=== PATIENT | female | born 2000 | race Native Hawaiian/Other Pacific Islander ===

== ENCOUNTER 2024-11-03 08:50 | Outpatient (AMB) | payer MEDICAID, SELFPAY ==
[2024-11-03 09:24] VITALS: BP 110/73; PULSE 100; RESP 20; TEMP 36.1; O2SAT 98; BMI 36.4
--- NOTE | 2024-11-03 09:24 | OBCLNT_ITS ---
Vital Signs 11/03/24 09:24 Height 1.57 m Height Method Stated Weight 90.435 kg Weight Measurement Method Standing Scale BMI 36.4 BP 110/73 Blood Pressure Source Automatic Cuff Blood Pressure Location Left Upper Arm Position Sitting Respiration 20 Pulse 100 Pulse Source Monitor Temp 96.9 F Temp Source Oral Pulse Oximetry (%) 98 Oxygen Delivery Method Room Air Allergies/Home Meds Allergies & Medications Allergies No Known Allergies Allergy (Verified 11/03/24 09:26) Medication Reconciliation ferrous sulfate 325 mg (65 mg iron) tablet (FeroSul) 325 mg PO BID 12/16/23 [History Confirmed 11/03/24] vit no.95-ferrous fumarate 28 mg-folic acid 800 mcg tablet () 1 tab PO DAILY 12/16/23 [History Confirmed 12/23/23] Intake Visit Data Collection New Patient or Established: Established Patient (seen at [facility] within 3 years) Reason for Visit:: CARE Seen by Clinical Staff ONLY (RN/MA): No 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 1. Little interest or pleasure in doing things: not at all 2. Feeling down, depressed, or hopeless: not at all Total score: 0 PHQ-9 3. Trouble falling or staying asleep, or sleeping too much: Not at all 4. Feeling tired or having little energy: Not at all 5. Poor appetite or overeating: Not at all 6. Feeling bad about yourself - or that you are a failure or have let yourself or your family down: Not at all 7. Trouble concentrating on things, such as reading the newspaper or watching television: Not at all 8. Moving or speaking so slowly that other people could have noticed? - Or the opposite - being so fidgety or restless that you have been moving around a lot more than usual: not at all 9. Thoughts that you would be better off or of hurting yourself in some way: Not at all Total score: 0 Source: Developed by Drs. Luis Jones, Maddie Marie, Noah Schmidt and colleagues, with an educational hadley from [employer]. Depression screen completed yes Social History Living Situation History Lives With: Children Housing: House Tobacco History Smoking Status: Never smoker Second Hand Smoke Exposure: No Alcohol History Alcohol Intake: Never Domestic Abuse History Do You Feel Safe at Home: Yes NURSE CHEMICAL DEPENDENCY: Past Medical History Past Medical History: No Hx Neurological Disorders, Yes Hx Cardiac Disorders (GHTN), No Hx Cancer, Yes Hx Blood Disorders, Yes Hx Anemia, No Hx Gastrointestinal Disorders, No Hx Renal Disease, No Hx Diabetes Mellitus Type 1 and No Hx Diabetes Mellitus Type 2 OB Initial Visit Menstrual History Menstrual reliability: definite Flow: normal Menstrual regularity: irregular Monthly: No Age at menarche: 11 On control pills at conception: No Date of positive home test: 05/18/24 Associated symptoms (LMP): Reports nausea OB History : 3 Para: 2 Hx Total # of Abortions (Spontaneous & Elective): 0 # of Living Children: 2 Delivery History 1st : Child's name: LULÚ date: 12/17/22 sex: male Gestational age at delivery (weeks): 31 Delivery type: vaginal History of depression before or after : No 2nd : Child's name: LINDA date: 12/26/23 sex: male Gestational age at delivery (weeks): 36 Delivery type: Delivery complications: NONE History of depression before or after : No Infection History & Risk Evaluation History of STDs: chlamydia Genetic Screening & History Genetic Screening/Teratology Counseling - Includes patient, baby's father, or anyone in either family with: 1. Patient's age 35 years or older as of estimated date of delivery: No 2. Thalassemia (Kyrgyz, Croatian, Mediterranean, or Background); MCV less than 80: No 3. Neural Tube Defect (Meningomyelocele, Spina Bifida, or Anencephaly): No 4. Congenital Heart Defect: No 5. Down Syndrome: No 6. Eddie-Sachs (Ashkenazi Christianity, Cajun, Yakut Mauritanian): No 7. Joao Disease (Ashkenazi Christianity): No 8. Familial Dysautonomia (Ashkenazi Christianity): No 9. Sickle Cell Disease or Trait (): No 10. Hemophilia or other blood disorders: No 11. Muscular Dystrophy: No 12. Cystic Fibrosis: No 13. Toan's Chorea: No 14. Mental Retardation/Autism: No 15. Other inherited genetic or chromosomal disorder: No 16. Maternal Metabolic Disorder (EG,TYPE 1 Diabetes, PKU): No 17. Patient or baby's father had a child with defects not listed above: No 18. Recurrent loss or a stillbirth: No 19. Medications (including supplements, vitamins, herbs or otc drugs)/illicit/recreational drugs/alcohol since last menstrual period: No 20. Any other: No Infection History 1. Live with someone with TB or exposed to TB: No 2. Rash or viral illness since last menstrual period: No 3. Hepatitis B,C: No Other (see comments) Source: [employer] Review of Systems Gastrointestinal Gastrointestinal: Reports nausea Office Procedures OB Clinic LOC & Office Proc's Nursing/Assessment Patient Status: Established Patient OB Clinic Nursing Assessment: Medication Reconciliation, Update PMH in EMR and Vital Signs OB Clinic Coordination of Care: Complex Care and Chronic Disease 1-5, Consent,records obtained, informed consent, Education Simp Pt/Fam, 1 Ins Authorization, Lab and Imaging orders, Results/Orders obtained and Staff clarify orders Special Needs: Heart tones Established Patient Charge Established Patient Point Assignment: 150 Established Patient Point Charge: EP Level 4 (120-155) Assessment & Plan Diagnosis / Problem List (1) Supervision of high risk , unspecified, third trimester: Status: Acute
== END 2024-11-03 09:56 | disposition home or self-care (01) ==
LOC: HODSOBC 08:50
PROVIDERS: Supervising Provider Obstetrics & Gynecology; Visit Provider Obstetrics & Gynecology
DX: O09.93 Supervision of high risk pregnancy, unspecified, third trimester (principal); Z3A.00 Weeks of gestation of pregnancy not specified
CPT/HCPCS: 99214; G0463

== ENCOUNTER 2024-11-20 08:59 | Outpatient (AMB) | payer MEDICAID, SELFPAY ==
--- NOTE | 2024-11-20 09:13 | AMB.OBVISIT ---
Vital Signs 11/20/24 09:14 Height 1.57 m Height Method Measured Weight 90.945 kg Weight Measurement Method Standing Scale BMI 36.6 BP 126/88 H Blood Pressure Source Automatic Cuff Blood Pressure Location Right Upper Arm Position Sitting Respiration 17 Pulse 102 H Pulse Source Monitor Temp 98.1 F Temp Source Temporal Artery Scan Pulse Oximetry (%) 98 Oxygen Delivery Method Room Air Allergies/Home Meds Allergies & Medications Allergies No Known Allergies Allergy (Verified 11/30/24 05:12) Medication Reconciliation vit no.95-ferrous fumarate 28 mg-folic acid 800 mcg tablet () 1 tab PO DAILY 12/16/23 [History Confirmed 11/29/24] Intake Visit Data Collection New Patient or Established: Established Patient (seen at [facility] within 3 years) Reason for Visit:: OBC\GBS Consent obtained for Telemed Visit: No Seen by Clinical Staff ONLY (RN/MA): No Tig 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 1. Little interest or pleasure in doing things: not at all PHQ-9 8. Moving or speaking so slowly that other people could have noticed? - Or the opposite - being so fidgety or restless that you have been moving around a lot more than usual: not at all Source: Developed by Drs. Luis Jones, Maddie Marie, Noah Schmidt and colleagues, with an educational hadley from [employer]. 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 Patient has a history of previous one year ago. Current is progressing with an ZOHREH of 12/19/2024 based on LMP. Patient reports nausea and lower back pain. heart rate auscultated at 120 bpm, which is within normal range. No reported contractions or other complications. Labs reviewed and noted to be within normal limits. Patient denies diabetes and reports normal blood sugar levels. - Schedule for December 11, 2024 (one week before due date) - Book follow-up appointment in 2 weeks - Patient advised to come to hospital for labs if nausea persists 11/20/24 <del>?</del> 36w 0d 90.945 kg 126/88 occasional unknown 36 142 decreased 35-year-old at 36 weeks 0 days gestation presenting with visual disturbances (floaters) for 2 days, concerning for possible preeclampsia. Patient has a history of two previous sections and is scheduled for a repeat section on December 11. Current blood pressure is 126/88. Patient also reports chronic eczema since high school, causing generalized pruritus. movement reported as present but not constant. heart rate noted to be 149 bpm. Plan - Send patient to hospital for preeclampsia evaluation, including labs, monitoring, and ultrasound - Schedule follow-up appointment in one week - Confirm scheduled for December 11, with possibility of earlier delivery if labs are abnormal - Prescribe cream for eczema - Refer to employee benefits attorney after delivery - Perform vaginal culture swab - Find primary care physician for patient to manage chronic eczema ZOHREH Calculator Estimated Delivery Date Method Current WG Current Estimate 12/18/24 LMP (Certain) 37w 3d Office Procedures OB Clinic LOC & Office Proc's Nursing/Assessment Patient Status: Established Patient OB Clinic Nursing Assessment: Medication Reconciliation, Update PMH in EMR and Vital Signs OB Clinic Coordination of Care: Complex Care and Chronic Disease 1-5, Consent,records obtained, informed consent, Education Simp Pt/Fam and Lab and Imaging orders Special Needs: Heart tones Established Patient Charge Established Patient Point Assignment: 120 Established Patient Point Charge: EP Level 4 (120-155) Assessment & Plan Diagnosis / Problem List (1) Chronic eczema: Status: Acute (2) Insufficient care: Status: Acute Qualifiers: Trimester: third trimester Qualified Code(s): O09.33 - Supervision of with insufficient care, third trimester
[2024-11-20 09:14] VITALS: BP 126/88; PULSE 102; RESP 17; TEMP 36.7; O2SAT 98; BMI 36.6
== END 2024-11-20 09:42 | disposition home or self-care (01) ==
LOC: HODSOBC 08:59
PROVIDERS: Supervising Provider Obstetrics & Gynecology; Visit Provider Obstetrics & Gynecology
DX: O09.33 Supervision of pregnancy with insufficient antenatal care, third trimester (principal); O09.893 Supervision of other high risk pregnancies, third trimester; O99.713 Diseases of the skin and subcutaneous tissue complicating pregnancy, third trimester; L30.9 Dermatitis, unspecified; O99.891 Other specified diseases and conditions complicating pregnancy; H53.9 Unspecified visual disturbance; Z3A.36 36 weeks gestation of pregnancy; Z87.59 Personal history of other complications of pregnancy, childbirth and the puerperium
CPT/HCPCS: 99214; G0463

== ENCOUNTER 2024-11-20 10:22 | Outpatient (CLI) | payer MEDICAID, SELFPAY ==
[2024-11-20] VITALS (26 sets, daily range): BP systolic 106–185; BP diastolic 59–91; PULSE 63–99; RESP 16–98; TEMP 36.6; O2SAT 91–100; BMI 37.0
--- NOTE | 2024-11-20 10:41 | XR_ITS ---
Examination: Complete OB ultrasound greater than 14 weeks Date and time of exam: November 20, 2024, 11:11 AM INDICATIONS: -induced hypertension diagnosis Findings: Viable intrauterine single fetus with single amniotic sac presentation cephalic. Cardiac motion 136 BPM. Placenta anterior grade 2. Umbilical cord insertion seen. Amniotic fluid index 10.1 cm. Cervix 4 cm. Ovaries obscured by bowel gas. Estimated gestational age 33 weeks 5 days. Estimated weight 2284.6 g.. Survey of intracranial anatomy, spinal anatomy, abdominal anatomy, four-chamber heart performed with no abnormalities identified. Impression: Viable intrauterine gestation in cephalic presentation.
[2024-11-20 12:21] LABS: Basophils # (Auto) 0.1 Thou/mm3 (0.0-0.2); Basophils % (Auto) 1 % (0-2.5); Eosinophils # (Auto) 0.7 Thou/mm3 (0.0-0.5); Eosinophils % (Auto) 6 % (0-10); Hematocrit 35.6 % (36.0-46.0); Hemoglobin 12.3 g/dL (12.0-16.0); Immature Granulocytes Auto 0.12 Thou/mm3 (0.00-0.00); Lymphocytes # (Auto) 1.5 Thou/mm3 (1.0-4.8); Lymphocytes % (Auto) 12 % (10-50); Mean Corpuscular HGB Conc 34.6 g/dl (31.0-37.0); Mean Corpuscular Hemoglobin 26.7 pg (25.0-35.0); Mean Corpuscular Volume 77 fL (80-100); Monocytes # (Auto) 0.7 Thou/mm3 (0.0-0.8); Monocytes % (Auto) 6 % (0-12); Neutrophils # (Auto) 8.8 Thou/mm3 (1.8-7.7); Neutrophils % (Auto) 74 % (37-80); Nucleated Red Blood Cell # 0.00 Thou/mm3 (0.00-0.00); Nucleated Red Blood Cell % 0 /100 WBC (0); Platelet Count 179 Thou/mm3 (140-440); RDW Standard Deviation 39.5 fL (36.4-46.3); Red Blood Count 4.60 Miln/mm3 (4.00-5.20); White Blood Count 11.8 Thou/mm3 (3.6-11.0)
[2024-11-20 12:33] LABS: Fibrinogen 454 mg/dL (175-375); INR 0.9 (0.9-1.3); Partial Thromboplastin Time 26.7 Seconds (22.0-36.0); Prothrombin Time 10.3 Seconds (9.0-12.2)
[2024-11-20 12:45] LABS: Collection Type, Urine Clean Catch
[2024-11-20 12:48] LABS: Alanine Aminotransferase < 7 U/L (10-49); Albumin, Serum 3.4 gm/dL (3.5-5.0); Albumin/Globulin Ratio 1.2 (1.2-2.2); Alkaline Phosphatase 73 U/L (46-116); Anion Gap 11 (7-16); Aspartate Amino Transferase 15 U/L (0-34); BUN/Creatinine Ratio 10 Ratio (12-20); Bilirubin,Total 0.3 mg/dL (0.3-1.2); Blood Urea Nitrogen 7 mg/dL (9-23); Calcium 8.9 mg/dL (8.3-10.6); Calcium (Corrected) 9.4 mg/dL (8.5-10.1); Carbon Dioxide 22.1 mMol/L (20.0-31.0); Chloride 106 mMol/L (98-107); Creatinine (Component) 0.7 mg/dL (0.6-1.3); Estimated Creatinine Clearance 129.7 mL/min (>60); Globulin 2.9 gm/dL (2.3-3.5); Glucose 96 mg/dL (74-106); LDH (Lactate Dehydrogenase) 245 U/L (120-246); Osmolality,Calculated 275 (275-295); Potassium 3.5 mMol/L (3.4-5.1); Sodium 139 mMol/L (136-145); Total Protein 6.3 gm/dL (5.7-8.2); eGFR > 60 See Note
[2024-11-20 12:57] LABS: Uric Acid 5.4 mg/dL (3.1-7.8)
[2024-11-20 13:25] LABS: Bacteria,Urine 1+; Bilirubin,Urine Negative (Negative); Blood,Urine Negative (Negative); Color,Urine Lt-Yellow (Lt Yel-Yel); Glucose, Urine Negative (Negative); Ketones,Urine Negative (Negative); Leukocyte Esterase,Urine Positive (Negative); Nitrite,Urine Positive (Negative); PH,Urine 6.0 (5.0-7.0); Protein,Urine Negative (Neg - Trace); RBC,Urine 2 /hpf (0-3); Specific Gravity,Urine 1.011 (1.001-1.035); Squamous Epithelial Cell,Urine 15 /hpf (0-5); Urobilinogen,Urine Negative mg/dL (0.0-1.0); WBC,Urine 9 /hpf (0-5)
[2024-11-20 13:36] LABS: Clarity,Urine Hazy (Clear/Hazy)
== END 2024-11-20 14:02 | disposition home or self-care (01) ==
LOC: S4S1 10:23 → S4SX 10:25
PROVIDERS: Referring Provider Obstetrics & Gynecology; Visit Provider Obstetrics & Gynecology
DX: Z34.93 Encounter for supervision of normal pregnancy, unspecified, third trimester (principal); Z3A.33 33 weeks gestation of pregnancy
CPT/HCPCS: 36415; 59025; 76805; 80053; 81001; 83615; 84550; 85025; 85384; 85610; 85730

== ENCOUNTER 2024-11-29 22:16 | Inpatient (IN) | payer MEDICAID, SELFPAY ==
[2024-11-29] VITALS (24 sets, daily range): BP systolic 124–167; BP diastolic 81–117; PULSE 77–105; RESP 17–100; TEMP 36.6–36.7; O2SAT 90–100; BMI 36.6; BMI 37.3
[2024-11-30] VITALS (144 sets, daily range): BP systolic 0–177; BP diastolic 0–107; PULSE 65–116; RESP 12–20; TEMP 36.4–36.6; O2SAT 84–100; BMI 37.3
[2024-11-30 00:06] LABS: Collection Type, Urine Clean Catch
[2024-11-30 00:09] LABS: Basophils # (Auto) 0.0 Thou/mm3 (0.0-0.2); Basophils % (Auto) 0 % (0-2.5); Eosinophils # (Auto) 1.2 Thou/mm3 (0.0-0.5); Eosinophils % (Auto) 10 % (0-10); Hematocrit 38.9 % (36.0-46.0); Hemoglobin 13.3 g/dL (12.0-16.0); Immature Granulocytes Auto 0.06 Thou/mm3 (0.00-0.00); Lymphocytes # (Auto) 1.3 Thou/mm3 (1.0-4.8); Lymphocytes % (Auto) 12 % (10-50); Mean Corpuscular HGB Conc 34.2 g/dl (31.0-37.0); Mean Corpuscular Hemoglobin 26.7 pg (25.0-35.0); Mean Corpuscular Volume 78 fL (80-100); Monocytes # (Auto) 0.7 Thou/mm3 (0.0-0.8); Monocytes % (Auto) 6 % (0-12); Neutrophils # (Auto) 8.2 Thou/mm3 (1.8-7.7); Neutrophils % (Auto) 71 % (37-80); Nucleated Red Blood Cell # 0.00 Thou/mm3 (0.00-0.00); Nucleated Red Blood Cell % 0 /100 WBC (0); Platelet Count 212 Thou/mm3 (140-440); RDW Standard Deviation 41.1 fL (36.4-46.3); Red Blood Count 4.99 Miln/mm3 (4.00-5.20); White Blood Count 11.4 Thou/mm3 (3.6-11.0)
--- NOTE | 2024-11-30 00:11 | XR_ITS ---
Examination: Biophysical profile, ultrasound Date and time of exam: November 30, 2024 1216 hours INDICATIONS: Decreased movement today Technique: Multiple transabdominal sonographic images of the pelvis abdomen obtained. Attention is directed to the breathing movement, gross body movement, amniotic fluid volume and tone. Findings: Amniotic fluid index 12.8 cm Total biophysical profile is 8 of 8. breathing movement is 2. Gross body movement is 2. tone is 2. Qualitative amniotic fluid volume is 2 Impression: Biophysical profile is 8 of 8.
[2024-11-30 00:15] LABS: Bilirubin,Urine Negative (Negative); Blood,Urine Negative (Negative); Clarity,Urine Clear (Clear/Hazy); Color,Urine Lt-Yellow (Lt Yel-Yel); Glucose, Urine Negative (Negative); Ketones,Urine Negative (Negative); Leukocyte Esterase,Urine Positive (Negative); Nitrite,Urine Negative (Negative); PH,Urine 6.5 (5.0-7.0); Protein,Urine Negative (Neg - Trace); RBC,Urine 6 /hpf (0-3); Specific Gravity,Urine 1.022 (1.001-1.035); Squamous Epithelial Cell,Urine 18 /hpf (0-5); Urobilinogen,Urine Negative mg/dL (0.0-1.0); WBC,Urine 35 /hpf (0-5)
[2024-11-30 00:43] LABS: Albumin, Serum 3.7 gm/dL (3.5-5.0); Albumin/Globulin Ratio 1.2 (1.2-2.2); Alkaline Phosphatase 82 U/L (46-116); Anion Gap 11 (7-16); Aspartate Amino Transferase 19 U/L (0-34); BUN/Creatinine Ratio 10 Ratio (12-20); Bilirubin,Total 0.3 mg/dL (0.3-1.2); Blood Urea Nitrogen 6 mg/dL (9-23); Calcium 9.5 mg/dL (8.3-10.6); Calcium (Corrected) 9.7 mg/dL (8.5-10.1); Carbon Dioxide 24.3 mMol/L (20.0-31.0); Chloride 104 mMol/L (98-107); Creatinine (Component) 0.6 mg/dL (0.6-1.3); Estimated Creatinine Clearance 151.8 mL/min (>60); Globulin 3.1 gm/dL (2.3-3.5); Glucose 74 mg/dL (74-106); LDH (Lactate Dehydrogenase) 313 U/L (120-246); Osmolality,Calculated 274 (275-295); Potassium 3.9 mMol/L (3.4-5.1); Sodium 139 mMol/L (136-145); Total Protein 6.8 gm/dL (5.7-8.2); Uric Acid 5.2 mg/dL (3.1-7.8); eGFR > 60 See Note
[2024-11-30 00:53] LABS: Fibrinogen 486 mg/dL (175-375); INR 0.9 (0.9-1.3); Partial Thromboplastin Time 25.0 Seconds (22.0-36.0); Prothrombin Time 9.8 Seconds (9.0-12.2)
[2024-11-30 00:55] LABS: Alanine Aminotransferase 7 U/L (10-49)
[2024-11-30 01:38] LABS: Creatinine,Random Urine 103 mg/dL (30-125); Protein Total, Random Urine 33 mg/dL (1-14)
--- NOTE | 2024-11-30 01:44 | PRELIM_ITS ---
Obstetric ultrasound (limited). November 30, 2024 at 0016 hours Clinical history: Decreased movement. Comparison: Compared with the prior study dated December 24, 2024. Findings: There is a gravid uterus with a live fetus. cardiac activity is present at a heart rate of 132 beats per minute. Amniotic fluid is adequate (SUSAN =12.8cm). Biophysical Profile: Breathing : 2 Tone : 2 Amniotic fluid : 2 Movement : 2 BPP Score : 8/8 Impression: Gravid uterus with a single live fetus. Normal biophysical profile as recorded by the sand technologist. Report Electronically Signed By: Mir Huynh 11/30/2024 1:43:44 AM [EST]
[2024-11-30] MEDS: NIFEdipine XL 30 MG TABCR PO (02:35)
[2024-11-30 05:14] LABS: Syphilis Nonreactive (Nonreactive)
--- NOTE | 2024-11-30 08:10 | PD.LDHP ---
Documentation for date of: 11/30/24 OB Labor/Induct. HPI History of Present Illness Chief complaint: vision changes : 3 Para: 2 Term pregnancies: 1 pregnancies: 1 Living children: 2 History of Abortions: Spontaneous and Elective: 0 History of Vaginal deliveries: 1 History of sections: Yes History of : No Date of last menstrual period: 03/13/25 ZOHREH: 12/18/24 Gestational Age (weeks): 37 Gestational Age (days): 3 Gestational age based on last menstrual period: -14 History of present illness: Patient presents for episode of spots in her vision which is new. No ctx or LOF. No vaginal bleeding. Normal movement. No fevers/chills. She denies CERON and RUQ pain. Upon evaluation she is noted to have recurrent (new) mild range bp's. Labs show urine protein:creatinine 0.3. New diagnosis of pre-eclampsia withOUT severe features. History of Present Adequate Care: No Ultrasounds: normal mid trimester US Narrative: : 11/2023- 31(?)wk (baby in NICU 2 weeks), delivered in bathroom of ER- didn't know she was . Was told she had pre-eclampsia. G2: 12/26/23- 37wk PLTCS for IUGR 4.8%ile with Cat II FHRT at start of IOL G3: current complicated by: -Obesity (current BMI 37.4) -Hx of prior section -Short inter- interval -Hx of PTD -Hx of pre-eclampsia in prior -New dx of pre-eclampsia withOUT severe features Labs Maternal Blood Type: A Pos Labs: Positive: Rubella Titre, Negative: RPR, Hepatitis B, HIV and Chlamydia and Unknown: Gonorrhea, Herpes Type 1, Group Beta Strep and Covid-19 Narrative: NIPT negative CF negative 1hr glucola 83 A1c 4.8 Review of Systems Review of Systems Narrative Review of Systems: Review of Systems Systems Reviewed: All systems reviewed, normal except as documented Constitutional Constitutional: Denies body ache(s), Denies chills, Denies fever(s) and Denies headache(s) ENT Ears, Nose, Mouth, and Throat: Denies headache(s) and Denies vertigo Cardiovascular Cardiovascular: Denies chest pain, Denies palpitations, Denies dyspnea and Denies syncope Respiratory Respiratory: Denies cough, Denies dyspnea Gastrointestinal Gastrointestinal: Denies nausea and Denies vomiting Neurologic Neurologic: Denies convulsions, Denies headache(s), Denies syncope and Denies vertigo Past Medical History Family History OTHER FAMILY HX: non-contributory Surgical History SURGICAL: Positive Section Social History SOCIAL: History of e-cig use x5 years in the past. No ETOH or illicit drug use. Past Medical History Comments PMH COMMENT: Obesity Hx of chlamydia in the past (negative in ) Eczema Meds Home Medications and Allergies Home Medications ?Medication ?Instructions ?Recorded ?Confirmed ?Type vit no.95-ferrous 1 tab PO DAILY 12/16/23 11/29/24 History fumarate 28 mg-folic acid 800 mcg tablet () Allergies Allergy/AdvReac Type Severity Reaction Status Date / Time No Known Allergies Allergy Verified 11/30/24 05:12 OB Exam Physical Exam Vital signs: Temp Pulse Resp BP Pulse Ox O2 Del Method 98.0 F 85 17 133/88 H 100 Room Air 11/29/24 22:28 11/30/24 08:09 11/29/24 22:28 11/30/24 08:09 11/30/24 08:10 11/29/24 21:52 Narrative: General: well developed, well nourished, no acute distress, conversant Cardiac: normal heart rate Lungs: breathing without distress Abdomen: soft, gravid, non-tender, no rebound or guarding Extremities: trace edema BLE Detailed Labor and Delivery Exam Membranes: intact monitor accelerations: 15x15 monitor decelerations: None buttermaker helper variability: Moderate (11-25) OB Results Labs 11/29/24 23:15 11/29/24 23:15 Labs: Short CBC 11/29/24 Range/Units 23:15 WBC 11.4 H (3.6-11.0) Thou/mm3 Hgb 13.3 (12.0-16.0) g/dL Hct 38.9 (36.0-46.0) % Plt Count 212 D (140-440) Thou/mm3 BMP 11/29/24 23:15 Sodium 139 Potassium 3.9 Chloride 104 Carbon Dioxide 24.3 BUN 6 L Creatinine 0.6 Glucose 74 Calcium 9.5 Liver Function 11/29/24 Range/Units 23:15 Total Bilirubin 0.3 (0.3-1.2) mg/dL AST 19 (0-34) U/L ALT 7 L (10-49) U/L Alkaline Phosphatase 82 (46-116) U/L Albumin 3.7 (3.5-5.0) gm/dL Urine 11/29/24 Range/Units 23:15 Urine Color Lt-Yellow (Lt Yel-Yel) Urine Clarity Clear (Clear/Hazy) Urine pH 6.5 (5.0-7.0) Ur Specific [place] 1.022 (1.001-1.035) Urine Protein Negative (Neg - Trace) Urine Glucose (UA) Negative (Negative) OB Assessment & Plan Assessment and Plan (1) Pre-eclampsia affecting , antepartum: Status: Acute Assessment and plan: Olive is a 24yo with SIUP at 37&3wk with new diagnosis of pre-eclampsia withOUT severe features based on mild range bp's and urine prot:creat 0.3. Hgb 13.3. Plt 212. Serum creat 0.6. LFTs wnl. Spots in vision resolved in triage. Benign exam. Reassuring assessment. PMhx/ complicated by: -Obesity (current BMI 37.4) -Hx of prior section -Short inter- interval -Hx of PTD -Hx of pre-eclampsia in prior -New dx of pre-eclampsia withOUT severe features -severe eczema -Care with Dr. Astudillo Plan: -Admit to L&D -Establish IV, routine labs -NPO -Counseled/consented re: section. Discussed all r/b/a to include: bleeding (possible need for blood transfusion), infection (subcutaneous, deeper layers or uterine with possible need for prolonged admission or re-admission for IV antibiotics, I&D with wound packing, etc), injury to nearby structures such as bladder, bowel, ureters, blood vessels, nerves with possible need for re-operation, pain, injury to baby, hysterectomy, DVT/PE, . Answered all questions to patient and their support person's satisfaction. -IV abx ppx: ancef 2g IV -Nursing and anesthesia team aware of plan for section. Will proceed to OR when team is ready (2) History of section complicating : Status: Acute (3) Obesity affecting in third trimester: Status: Acute (4) Short interval between pregnancies affecting in third trimester, antepartum: Status: Acute (3) Obesity affecting in third trimester Qualifiers: Obesity type affecting : unspecified obesity Qualified Code(s): O99.213 - Obesity complicating , third trimester
[2024-11-30 11:08] LABS: Amphetamine/Metham Scrn,Ur OB Negative (Negative); Benzoylecgonine Screen, Ur OB Negative (Negative); Opiate Screen,Urine OB Negative (Negative); THC Screen,Urine OB Negative (Negative)
[2024-11-30] MEDS: FAMOTIDINE INJ 10 MG/ML VIAL 2 ML 20 MG IV (12:30)
[2024-11-30] MEDS: ceFAZolin/D5W 2 GM IV 2 GM/100 ML BAG IV ×3 (12:31→23:14)
[2024-11-30] MEDS: METOCLOPRAMIDE INJ 5 MG/ML VIAL 2 ML 10 MG IVP (12:31)
--- NOTE | 2024-11-30 14:27 | ESOP_ITS ---
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 She has history of one prior section. Pre-Op diagnosis: SIUP at 37w3d Pre-eclampsia withOUT severe features History of prior section Obesity, current BMI 37.4 Short inter- interval History of pre-term delivery History of pre-eclampsia in prior Severe eczema Post-Op diagnosis: SIUP at 37w3d Pre-eclampsia withOUT severe features History of prior section Obesity, current BMI 37.4 Short inter- interval History of pre-term delivery History of pre-eclampsia in prior Severe eczema Anesthesia type: Spinal Fluids: crystalloid Fluid amount (mL): 3,000 Urine output (mL): 150 Specimen: other (placenta and cord not sent to pathology) Estimated blood loss (ml): 590 Findings: Male in cephalic presentation, apgars 7/8, time of 1323 on 11/30/24. Weight 2330g. Normal appearing uterus, fallopian tubes and ovaries. Adhesion of omentum to anterior abdominal wall that required adhesiolysis to obtain visualization in the abdomen. Severe generalized eczema. Complications: none Narrative: After obtaining informed consent, the patient was taken to the operating room. There was reassuring heart rate tracing prior. Spinal anesthesia was administered. A hawthorne catheter was placed and bilateral sequential compression devices were placed. She was then prepped and draped in the normal sterile fashion in the dorsal supine position with left lateral tilt. A timeout was performed to confirm patient name, date of , procedure and indication. The team was in agreement. Spinal anesthesia was found to be adequate using an Allis clamp. Anceph 2g IV x1 were given for prophylaxis. A Pfannenstiel skin incision was then made with the scalpel and carried through to the underlying layer of fascia. The fascia was incised in the midine and the incision was extended laterally with the Scott scissors. The superior and inferior aspects of the fascial incision were then grasped with the Jacinto clamps, elevated and the underlying rectus muscles were dissected off bluntly and sharply. The peritoneum was entered digitally and the rectus muscles were then in the midline. Adhesion of omentum to anterior abdominal wall required adhesiolysis to visualize contents of abdomen- 3-O vicryl used to tie off omentum on two sides and then Bovie cautery used to excise in between- hemostasis ensured before pushing omentum superiorly out of the visual field. The peritoneal incision was then extended superiorly and inferiorly with good visualization of the bladder. An Star retractor was placed. The lower uterine segment was scored in a transverse fashion with the scalpel. The uterus was then entered bluntly and the incision was extended with traction with clear amniotic fluid noted. The 's head was elevated to the level of the incision. Fundal pressure was applied. The head was delivered atraumatically in the OA position. The anterior shoulder, posterior shoulder and corpus were delivered without difficulty. The nose and mouth were suctioned with bulb suction and cord was clamped x2 and cut. was vigorous. The was handed off to the awaiting nursing team. Scant cord blood was able to be obtained for typing given very short cord. The placenta was then removed with uterine massage and cord traction. The uterus was exteriorized and cleared of all clot and debris. The uterine incision was repaired with 0-monocryl suture in a running locking fashion. A second layer of O-monocryl was used to closed the hysterotomy incision in an imbricating fashion. The uterine incision was inspected and hemostasis was noted. In addition to standard IV pitocin, patient received TXA 1g IV x1 and methergine 0.2mg IM x1 with good tone achieved and maintained. The posterior cul-de-sac was suctioned and the uterus returned to the abdomen. The gutters were cleared of all clot. Hysterotomy again noted to be hemostatic. Star retractor was removed. The peritoneum was closed using a 3-0 vicryl suture in running fashion. The rectus muscles were inspected and small areas of oozing were cauterized. The fascia was reapproximated with 0-Vicryl suture in a running fashion. The subcutaneous tissue was then copiously irrigated. Bret's fascia was reapproximated using 3-0 vicryl suture in a running fashion in 2 layers. Skin was reapproximated with 4-0 monocryl suture in running subcuticular fashion. The incision was cleaned with a wet lap and dried with a dry lap. Sxloarbpy-[id number]-[id number] bandage was applied overlying the incision and activated according to resident physician in radiology instructions. Fundus was firm at the umbilicus. Sponge, lap and needle counts were correct x2. The procedure was without complications and the patient tolerated the procedure well. She was taken to recover further on Labor and Delivery, in stable condition. Surgical staff Operation Date: 11/30/24 12:45 Case Staff MEDICAL INTERN: Vince Livingston RN First Assistant: Ginette He Diagnosis Discharge Diagnosis (1) Pre-eclampsia affecting , antepartum: Status: Acute (2) History of section complicating : Status: Acute (3) Obesity affecting in third trimester: Status: Acute (4) Short interval between pregnancies affecting in third trimester, antepartum: Status: Acute (5) Chronic eczema: Status: Acute Problem List Completed Was Problem List Reviewed/Reconciled?: Yes (3) Obesity affecting in third trimester Qualifiers: Obesity type affecting : unspecified obesity Qualified Code(s): O99.213 - Obesity complicating , third trimester
[2024-11-30] MEDS: KETOROLAC INJ 30 MG/ML VIAL IVP (19:06)
[2024-11-30] MEDS: OXYTOCIN in NS 20 units 20 UNIT/1,000 ML BAG 125 UNIT IV (19:43)
[2024-11-30] MEDS: DOCUSATE SOD 100 MG CAPSULE PO (20:07)
[2024-12-01] MEDS: KETOROLAC INJ 30 MG/ML VIAL IVP ×2 (00:09→06:00)
[2024-12-01 00:14] VITALS: BP 131/84; PULSE 81; RESP 16; TEMP 36.8; O2SAT 99
[2024-12-01 04:25] VITALS: BP 129/82; PULSE 90; RESP 19; TEMP 36.9; O2SAT 98
[2024-12-01 05:07] LABS: Basophils # (Auto) 0.1 Thou/mm3 (0.0-0.2); Basophils % (Auto) 0 % (0-2.5); Eosinophils # (Auto) 0.9 Thou/mm3 (0.0-0.5); Eosinophils % (Auto) 6 % (0-10); Hematocrit 33.1 % (36.0-46.0); Hemoglobin 11.3 g/dL (12.0-16.0); Immature Granulocytes Auto 0.07 Thou/mm3 (0.00-0.00); Lymphocytes # (Auto) 1.0 Thou/mm3 (1.0-4.8); Lymphocytes % (Auto) 7 % (10-50); Mean Corpuscular HGB Conc 34.1 g/dl (31.0-37.0); Mean Corpuscular Hemoglobin 26.9 pg (25.0-35.0); Mean Corpuscular Volume 79 fL (80-100); Monocytes # (Auto) 0.8 Thou/mm3 (0.0-0.8); Monocytes % (Auto) 6 % (0-12); Neutrophils # (Auto) 11.3 Thou/mm3 (1.8-7.7); Neutrophils % (Auto) 80 % (37-80); Nucleated Red Blood Cell # 0.00 Thou/mm3 (0.00-0.00); Nucleated Red Blood Cell % 0 /100 WBC (0); Platelet Count 162 Thou/mm3 (140-440); RDW Standard Deviation 42.5 fL (36.4-46.3); Red Blood Count 4.20 Miln/mm3 (4.00-5.20); White Blood Count 14.1 Thou/mm3 (3.6-11.0)
[2024-12-01] MEDS: RINGERS LACTATED 1000 ML 1,000 ML 100 ML IV (06:05)
[2024-12-01 08:00] VITALS: BP 135/92; PULSE 91; RESP 16; TEMP 36.5; O2SAT 98
--- NOTE | 2024-12-01 08:43 | ESPR_ITS ---
Subjective Subjective Interval history: Delivery type: for preeclampsia without severe features Patient doing well this morning. No acute complaints. Ambulating, tolerating p.o. and voiding without difficulty. HTN/Pre-Eclampsia screen: No chest pain, shortness of breath, headache, visual changes, epigastric or right upper quadrant pain. Breast-feeding, lochia diminishing. Bowel: Flatus+ Exam Vital Signs Temp Pulse Resp BP Pulse Ox O2 Del Method 98.4 F 90 19 129/82 98 Room Air 12/01/24 04:25 12/01/24 04:25 12/01/24 04:25 12/01/24 04:25 12/01/24 04:25 12/01/24 04:25 Constitutional Constitutional: no acute distress Routine HEENT Exam Head: Present normocephalic and atraumatic Eye: Present EOMI and PERRL ENT: Present mucous membranes moist Routine Neck Exam Neck: Present supple and trachea midline Routine Respiratory Exam Respiratory: Present chest non-tender, lungs clear, normal breath sounds and no resp distress Routine Cardiovascular Exam Cardiovascular: Present RRR Routine Abdominal Exam Abdominal: Present soft and normoactive bowel sounds Routine Extremities Exam Extremities: Present full ROM Routine Skin Exam Skin: Present intact, dry and warm Routine Neurological Exam Neurological: Present alert, oriented X3 and CN II-XII intact Routine Psychiatric Exam Psychiatric: Present normal affect and normal thought process Objective Labs 12/01/24 04:49 11/29/24 23:15 Labs: Laboratory Results - last 24 hr 11/30/24 12/01/24 10:20 04:49 WBC 14.1 H RBC 4.20 Hgb 11.3 L D Hct 33.1 L MCV 79 L MCH 26.9 MCHC 34.1 RDW Std Deviation 42.5 Plt Count 162 D Neut % (Auto) 80 Lymph % (Auto) 7 L [place] % (Auto) 6 Eos % (Auto) 6 Baso % (Auto) 0 Neut # (Auto) 11.3 H Lymph # (Auto) 1.0 [place] # (Auto) 0.8 Eos # (Auto) 0.9 H Baso # (Auto) 0.1 Immature Gran # (Auto) 0.07 H Absolute Nucleated RBC 0.00 Immature Gran % 1 H Nucleated RBC % 0 Urine Opiates Screen Negative U Amphetamin/Meth Scrn Negative U Cocaine Metab Screen Negative U Marijuana (THC) Screen Negative Assessment & Plan Problem List (1) Pre-eclampsia affecting , antepartum: Status: Acute (2) History of section complicating : Status: Acute Assessment and plan: 1. Continue routine /post-op care 2. Labs reviewed, cbc appropriate 3. Remove dressing/Lou 4. Encourage to ambulate, shower 5. Encourage PO intake, breast feeding (3) Obesity affecting in third trimester: Status: Acute (4) Short interval between pregnancies affecting in third trimester, antepartum: Status: Acute (5) Chronic eczema: Status: Acute Time Spent With Patient Time: Total time spent is greater than 50% in coordination of care (as documented) at patient's floor/unit and/or counseling patient:
[2024-12-01] MEDS: PRENATAL VITAMIN/FE FUM/FA TABLET 1 TAB PO ×2 (09:45→10:40)
[2024-12-01] MEDS: DOCUSATE SOD 100 MG CAPSULE PO ×2 (09:50→20:18)
[2024-12-01] MEDS: ACETAMINOPHEN 325 MG TABLET 650 MG PO (10:40)
[2024-12-01 12:00] VITALS: BP 130/90; PULSE 89; RESP 16; TEMP 36.6; O2SAT 98
[2024-12-01] MEDS: HYDROcodone/APAP 5/325 TABLET 1 TAB PO (13:08)
--- NOTE | 2024-12-01 13:43 | PC.SS ---
CONVEYOR LOADER conducted bedside contact with the patient to address nursing referral indicating patient was late to care 20 weeks.? CONVEYOR LOADER introduced self and role.? CONVEYOR LOADER reviewed with the patient basis of referral.? Patient informed CONVEYOR LOADER that prior to delivery of infant, patient was residing in [facility].? Upon relocation to [place] patient conducted OB appointment at week [address] Lin, [facility].? Infant K.J. is the patient?s third child.? Other children ages 2 yrs and 11 months.? FOB, [facility]; will be involved in the rearing of the child.? delivered via .? Patient plans on combo feeding .? Patient is aligned with WIC, SNAP and TANF.? Patient denies history of alcohol/drug abuse.? Patient denies CWS intervention.? Patient denies episodes of domestic violence.? Patient denies possessing a history of mental health, reports no current possession of depression or anxiety. Patient has access to appropriate supplies and equipment including a car seat.? FOB will provide transportation upon discharge.? Patient describes possessing support system consisting of FOB and parents.? CONVEYOR LOADER provided the patient with community resources to include Parenting Network and Warm Line.? No further intervention required at this time, social media marketer will be available to address any further concerns.? CONVEYOR LOADER updated bedside nurse.? No further concerns reported by bedside nurse.?
[2024-12-01 16:00] VITALS: BP 138/92; PULSE 90; RESP 16; TEMP 36.8
[2024-12-01] MEDS: HYDROcodone/APAP 5/325 TABLET 2 TAB PO (20:18)
[2024-12-01 20:49] VITALS: BP 138/89; PULSE 95; RESP 20; TEMP 36.5; O2SAT 100
[2024-12-01] MEDS: IBUPROFEN TAB 400 MG TABLET 800 MG PO (22:55)
[2024-12-02] VITALS (10 sets, daily range): BP systolic 124–160; BP diastolic 77–109; PULSE 84–109; RESP 16–20; TEMP 36.6–36.9; O2SAT 97–100
[2024-12-02] MEDS: ACETAMINOPHEN 325 MG TABLET 650 MG PO (00:39)
[2024-12-02] MEDS: IBUPROFEN TAB 400 MG TABLET 800 MG PO ×3 (06:15→21:08)
--- NOTE | 2024-12-02 08:21 | PD.LDPPPRG ---
Subjective Subjective Interval history: Delivery type: for gestational hypertension with superimposed preeclampsia without severe features Patient doing well this morning. No acute complaints. Ambulating, tolerating p.o. and voiding without difficulty. HTN/Pre-Eclampsia screen: No chest pain, shortness of breath, headache, visual changes, epigastric or right upper quadrant pain. Breast-feeding, lochia diminishing. Bowel: Flatus+/ BM+ Exam Vital Signs Temp Pulse Resp BP Pulse Ox O2 Del Method 97.8 F 84 20 144/94 H 98 Room Air 12/02/24 04:51 12/02/24 04:51 12/02/24 04:51 12/02/24 04:51 12/02/24 04:51 12/02/24 04:51 Constitutional Constitutional: no acute distress Routine HEENT Exam Head: Present normocephalic and atraumatic Eye: Present EOMI and PERRL ENT: Present mucous membranes moist Routine Neck Exam Neck: Present supple and trachea midline Routine Respiratory Exam Respiratory: Present chest non-tender, lungs clear, normal breath sounds and no resp distress Routine Cardiovascular Exam Cardiovascular: Present RRR Routine Abdominal Exam Abdominal: Present soft and normoactive bowel sounds Routine Extremities Exam Extremities: Present full ROM Routine Skin Exam Skin: Present intact, dry and warm Routine Neurological Exam Neurological: Present alert, oriented X3 and CN II-XII intact Routine Psychiatric Exam Psychiatric: Present normal affect and normal thought process Objective Labs 12/01/24 04:49 11/29/24 23:15 Assessment & Plan Problem List (1) Pre-eclampsia affecting , antepartum: Status: Acute Assessment and plan: PPD/POD#2 1. Continue routine care 2. Transition to PO meds. 3. Encourage to ambulate/ breast-feed 4. Anticipate discharge home today. (2) History of section complicating : Status: Acute (3) Obesity affecting in third trimester: Status: Acute (4) Short interval between pregnancies affecting in third trimester, antepartum: Status: Acute (5) Chronic eczema: Status: Acute Time Spent With Patient Time: Total time spent is greater than 50% in coordination of care (as documented) at patient's floor/unit and/or counseling patient:
--- NOTE | 2024-12-02 08:22 | PD.LDDS ---
DS: Providers Provider Date of admission: 11/30/24 05:07 Primary care physician: Physician No Primary/Family Admitting Provider: Noemi Kaur MD Attending Provider on Admission: Riccardo Astudillo MD Consults: 11/30/24 14:17 Referral Routine Comment: Attending Provider on DC: Riccardo Astudillo MD Discharging Provider: Riccardo Astudillo MD DS: Diagnosis Discharge Diagnosis (1) Short interval between pregnancies affecting in third trimester, antepartum: Status: Acute (2) Obesity affecting in third trimester: Status: Acute (3) History of section complicating : Status: Acute (4) Pre-eclampsia affecting , antepartum: Status: Acute (5) delivery delivered: Status: Acute Problem List Completed Was Problem List Reviewed/Reconciled?: Yes Summary/Hosp Course Brief History: Patient presents for episode of spots in her vision which is new. No ctx or LOF. No vaginal bleeding. Normal movement. No fevers/chills. She denies CERON and RUQ pain. Upon evaluation she is noted to have recurrent (new) mild range bp's. Labs show urine protein:creatinine 0.3. New diagnosis of pre-eclampsia withOUT severe features. Peripartum Data Delivery Method: Low Transverse Episiotomy Description: None Procedures: Procedures Operation Date: 11/30/24 12:45 Actual Procedure Side Surgeon p in OB Noemi Kaur MD Time Spent with Patient Time attestation: Total time spent providing and/or coordinating discharge services: Exam Vital Signs Temp Pulse Resp BP Pulse Ox O2 Del Method 97.8 F 84 20 144/94 H 98 Room Air 12/02/24 04:51 12/02/24 04:51 12/02/24 04:51 12/02/24 04:51 12/02/24 04:51 12/02/24 04:51 Discharge Plan Plan Patient Disposition: HOME (Self Care) Patient condition on transfer: Stable Prescriptions/Referrals Prescriptions/Med Rec: New docusate sodium 100 mg Capsule 100 mg PO BID 10 Days Qty: 20 0RF hydrocodone-acetaminophen 5-325 mg Tablet 1 tab PO Q6H MDD 4 tablets PRN (Reason: Patient rated pain 7 to 8) 7 Days Qty: 15 0RF ibuprofen 800 mg tablet 800 mg PO Q8HR 10 Days Qty: 30 0RF nifedipine 30 mg Tablet Extended Release 24hr 30 mg PO QDAY 30 Days Qty: 30 1RF Continued PNV no.95-ferrous fumarate-FA [] 28 mg iron- 800 mcg tablet 1 tab PO DAILY Patient Comments: TAKE 1 TABLET BY MOUTH EVERY DAY Referrals: Riccardo Astudillo MD [Physician, PIPE LINE INSPECTOR] No Primary/Family,Physician [Primary Care Provider] Patient/Caregiver Discharge Instructions Discharge Activity: activity as tolerated and other Other Discharge Activity Instructions:: vaginal rest and no heavy lifting more than 10 pounds for 6 weeks. keep incision clean and dry. do not submerge. no driving while taking narcotic. Other Discharge Diet Instructions: regular diet Education Materials: Understanding Preeclampsia, Breast Care After , After a , C Section Dc, Feel Healthy After Print Language: Yakut Activity Restrictions/Additional Instructions: call clinic to schedule 1 to [address] incision check with Dr[address] Astudillo Stand Alone Forms: Alley Award Info., Patient Portal Info Letter, DC from Surgery Discharge Order Discharge Orders: Discharge (Routine); Ordered 12/02/24 Ordered By: Riccardo Astudillo Planned Discharge Date 12/02/24 (2) Obesity affecting in third trimester Qualifiers: Obesity type affecting : unspecified obesity Qualified Code(s): O99.213 - Obesity complicating , third trimester
[2024-12-02] MEDS: DOCUSATE SOD 100 MG CAPSULE PO ×2 (09:05→21:08)
[2024-12-02] MEDS: PRENATAL VITAMIN/FE FUM/FA TABLET 1 TAB PO (09:06)
[2024-12-02] MEDS: NIFEdipine XL 30 MG TABCR PO (09:06)
[2024-12-02] MEDS: HYDROcodone/APAP 5/325 TABLET 2 TAB PO ×2 (14:19→22:24)
[2024-12-02] MEDS: LABETALOL 100 MG TABLET 200 MG PO (17:13)
[2024-12-02 18:13] LABS: Basophils # (Auto) 0.1 Thou/mm3 (0.0-0.2); Basophils % (Auto) 1 % (0-2.5); Eosinophils # (Auto) 1.1 Thou/mm3 (0.0-0.5); Eosinophils % (Auto) 9 % (0-10); Hematocrit 37.6 % (36.0-46.0); Hemoglobin 12.5 g/dL (12.0-16.0); Immature Granulocytes Auto 0.06 Thou/mm3 (0.00-0.00); Lymphocytes # (Auto) 1.2 Thou/mm3 (1.0-4.8); Lymphocytes % (Auto) 10 % (10-50); Mean Corpuscular HGB Conc 33.2 g/dl (31.0-37.0); Mean Corpuscular Hemoglobin 26.2 pg (25.0-35.0); Mean Corpuscular Volume 79 fL (80-100); Monocytes # (Auto) 0.5 Thou/mm3 (0.0-0.8); Monocytes % (Auto) 5 % (0-12); Neutrophils # (Auto) 8.8 Thou/mm3 (1.8-7.7); Neutrophils % (Auto) 75 % (37-80); Nucleated Red Blood Cell # 0.00 Thou/mm3 (0.00-0.00); Nucleated Red Blood Cell % 0 /100 WBC (0); Platelet Count 240 Thou/mm3 (140-440); RDW Standard Deviation 42.7 fL (36.4-46.3); Red Blood Count 4.78 Miln/mm3 (4.00-5.20); White Blood Count 11.7 Thou/mm3 (3.6-11.0)
[2024-12-02 18:40] LABS: INR 0.9 (0.9-1.3); Partial Thromboplastin Time 27.5 Seconds (22.0-36.0); Prothrombin Time 9.8 Seconds (9.0-12.2)
[2024-12-02 19:07] LABS: Albumin, Serum 3.4 gm/dL (3.5-5.0); Albumin/Globulin Ratio 1.2 (1.2-2.2); Alkaline Phosphatase 70 U/L (46-116); Anion Gap 11 (7-16); Aspartate Amino Transferase 24 U/L (0-34); BUN/Creatinine Ratio 10 Ratio (12-20); Bilirubin,Total 0.3 mg/dL (0.3-1.2); Blood Urea Nitrogen 6 mg/dL (9-23); Calcium 9.2 mg/dL (8.3-10.6); Calcium (Corrected) 9.7 mg/dL (8.5-10.1); Carbon Dioxide 25.5 mMol/L (20.0-31.0); Chloride 107 mMol/L (98-107); Creatinine (Component) 0.6 mg/dL (0.6-1.3); Estimated Creatinine Clearance 152.0 mL/min (>60); Globulin 2.9 gm/dL (2.3-3.5); Glucose 86 mg/dL (74-106); LDH (Lactate Dehydrogenase) 405 U/L (120-246); Osmolality,Calculated 281 (275-295); Potassium 3.7 mMol/L (3.4-5.1); Sodium 143 mMol/L (136-145); Total Protein 6.3 gm/dL (5.7-8.2); Uric Acid 5.0 mg/dL (3.1-7.8); eGFR > 60 See Note
[2024-12-02 19:19] LABS: Alanine Aminotransferase < 7 U/L (10-49)
[2024-12-02 19:21] LABS: Fibrinogen 612 mg/dL (175-375)
[2024-12-02 19:55] LABS: Creatinine,Random Urine 17 mg/dL (30-125); Protein Total, Random Urine 9 mg/dL (1-14)
[2024-12-03 05:34] VITALS: BP 150/90; PULSE 93
[2024-12-03] MEDS: LABETALOL 100 MG TABLET 400 MG PO ×2 (05:34→13:49)
[2024-12-03 06:44] LABS: Alanine Aminotransferase < 7 U/L (10-49); Albumin, Serum 3.4 gm/dL (3.5-5.0); Albumin/Globulin Ratio 1.1 (1.2-2.2); Alkaline Phosphatase 64 U/L (46-116); Anion Gap 12 (7-16); Aspartate Amino Transferase 22 U/L (0-34); BUN/Creatinine Ratio 12 Ratio (12-20); Bilirubin,Total 0.3 mg/dL (0.3-1.2); Blood Urea Nitrogen 6 mg/dL (9-23); Calcium 9.1 mg/dL (8.3-10.6); Calcium (Corrected) 9.6 mg/dL (8.5-10.1); Carbon Dioxide 24.4 mMol/L (20.0-31.0); Chloride 106 mMol/L (98-107); Creatinine (Component) 0.5 mg/dL (0.6-1.3); Estimated Creatinine Clearance 182.4 mL/min (>60); Globulin 3.1 gm/dL (2.3-3.5); Glucose 80 mg/dL (74-106); LDH (Lactate Dehydrogenase) 406 U/L (120-246); Osmolality,Calculated 279 (275-295); Potassium 3.9 mMol/L (3.4-5.1); Sodium 142 mMol/L (136-145); Total Protein 6.5 gm/dL (5.7-8.2); eGFR > 60 See Note
--- NOTE | 2024-12-03 08:34 | PD.LDPPPRG ---
Subjective Subjective Interval history: Delivery type: , preeclampsia without severe features, discharge was held yesterday because of elevated blood pressures and elevated LDH on lab Patient doing well this morning. No acute complaints. Ambulating, tolerating p.o. and voiding without difficulty. HTN/Pre-Eclampsia screen: No chest pain, shortness of breath, headache, visual changes, epigastric or right upper quadrant pain. Breast-feeding, lochia diminishing. Bowel: Flatus+/ BM+ Exam Vital Signs Temp Pulse Resp BP Pulse Ox O2 Del Method 98.4 F 93 17 150/90 H 97 Room Air 12/02/24 19:50 12/03/24 05:34 12/02/24 19:50 12/03/24 05:34 12/02/24 19:50 12/02/24 19:50 Constitutional Constitutional: no acute distress Routine HEENT Exam Head: Present normocephalic and atraumatic Eye: Present EOMI and PERRL ENT: Present mucous membranes moist Routine Neck Exam Neck: Present supple and trachea midline Routine Respiratory Exam Respiratory: Present chest non-tender, lungs clear, normal breath sounds and no resp distress Routine Cardiovascular Exam Cardiovascular: Present RRR Routine Abdominal Exam Abdominal: Present soft and normoactive bowel sounds Routine Extremities Exam Extremities: Present full ROM Routine Skin Exam Skin: Present intact, dry and warm Routine Neurological Exam Neurological: Present alert, oriented X3 and CN II-XII intact Routine Psychiatric Exam Psychiatric: Present normal affect and normal thought process Objective Labs 12/02/24 17:40 12/03/24 05:04 Labs: Laboratory Results - last 24 hr 12/02/24 12/02/24 12/03/24 17:10 17:40 05:04 WBC 11.7 H RBC 4.78 Hgb 12.5 Hct 37.6 MCV 79 L MCH 26.2 MCHC 33.2 RDW Std Deviation 42.7 Plt Count 240 D Neut % (Auto) 75 Lymph % (Auto) 10 [place] % (Auto) 5 Eos % (Auto) 9 Baso % (Auto) 1 Neut # (Auto) 8.8 H Lymph # (Auto) 1.2 [place] # (Auto) 0.5 Eos # (Auto) 1.1 H Baso # (Auto) 0.1 Immature Gran # (Auto) 0.06 H Absolute Nucleated RBC 0.00 Immature Gran % 1 H Nucleated RBC % 0 PT 9.8 INR 0.9 APTT 27.5 Fibrinogen 612 H* Sodium 143 142 Potassium 3.7 3.9 Chloride 107 106 Carbon Dioxide 25.5 24.4 Anion Gap 11 12 BUN 6 L 6 L Creatinine 0.6 0.5 L Estim Creat Clear Calc 152.0 182.4 eGFR > 60 > 60 BUN/Creatinine Ratio 10 L 12 Glucose 86 80 Calculated Osmolality 281 279 Uric Acid 5.0 Calcium 9.2 9.1 Corrected Calcium 9.7 9.6 Total Bilirubin 0.3 0.3 AST 24 22 ALT < 7 L < 7 L Alkaline Phosphatase 70 64 Lactate Dehydrogenase 405 H 406 H Total Protein 6.3 6.5 Albumin 3.4 L 3.4 L Globulin 2.9 3.1 Albumin/Globulin Ratio 1.2 1.1 L Ur Random Creatinine 17 L U Random Total Protein 9 Assessment & Plan Problem List (1) Short interval between pregnancies affecting in third trimester, antepartum: Status: Acute (2) Obesity affecting in third trimester: Status: Acute (3) History of section complicating : Status: Acute (4) Pre-eclampsia affecting , antepartum: Status: Acute Assessment and plan: PPD/POD#3 1. Continue routine care 2. Patient currently on labetalol 400 mg 3 times daily and Procardia 60 XL with blood pressure still elevated to 150/90. Will continue to monitor today and anticipate discharge in the evening once blood pressures are optimized 3. Encourage to ambulate/ breast-feed 4. Anticipate discharge home today. (5) delivery delivered: Status: Acute Time Spent With Patient Time: Total time spent is greater than 50% in coordination of care (as documented) at patient's floor/unit and/or counseling patient:
[2024-12-03 08:50] VITALS: BP 108/71; PULSE 69; RESP 14; TEMP 36.8; O2SAT 97
[2024-12-03] MEDS: DOCUSATE SOD 100 MG CAPSULE PO (09:23)
[2024-12-03] MEDS: PRENATAL VITAMIN/FE FUM/FA TABLET 1 TAB PO (09:23)
[2024-12-03 13:45] VITALS: BP 142/82; PULSE 85; RESP 16; TEMP 36.4; O2SAT 98
[2024-12-03 13:49] VITALS: BP 142/82; PULSE 85
[2024-12-03] MEDS: IBUPROFEN TAB 400 MG TABLET 800 MG PO (13:49)
== END 2024-12-03 15:30 | disposition home or self-care (01) | DRG 540 ==
LOC: S4SX 11-30 09:27 → S4NX 11-30 12:40
PROVIDERS: Admitting Provider Obstetrics & Gynecology; Visit Provider Obstetrics & Gynecology
PROC: 10D00Z1 Extraction of Products of Conception, Low, Open Approach (ICD-10-PCS; CPT 59514; principal; 2024-11-30 12:30)
DX: O34.211 Maternal care for low transverse scar from previous cesarean delivery (principal); O14.04 Mild to moderate pre-eclampsia, complicating childbirth; O99.214 Obesity complicating childbirth; N17.9 Acute kidney failure, unspecified; Z37.0 Single live birth; O99.72 Diseases of the skin and subcutaneous tissue complicating childbirth; Z3A.37 37 weeks gestation of pregnancy; O26.833 Pregnancy related renal disease, third trimester; L30.9 Dermatitis, unspecified
CPT/HCPCS: 36415; 59025; 59899; 76819; 80053; 80307; 81001; 82570; 82575; 83615; 84156; 84550; 85025; 85384; 85610; 85730; 86780; 86850; 86900; 86901; A4217; A4314; A4649; J0689; J1885; J2274; J2371; J2590; J2765; J3010; J3490; J7120; A9270; J2270